=== PATIENT | female | born 1950 | race Caucasian/White ===

== ENCOUNTER → 2017-05-19 | Outpatient (CLI) | END | disposition home or self-care (01) ==

== ENCOUNTER 2019-02-02 12:09 | Day surgery (SDC) | payer OTHER ==
[~2019-02-02] VITALS: Ht 175.3 cm; Wt 73.9 kg
[~2019-02-02 12:09] MED LIST: GENT.3OPSA OD; LEVSOD175; LEVSOD50 PO; LEVSOD75 PO; PREGNENOLONE PO
== END 2019-02-02 13:56 | disposition home or self-care (01) ==
LOC: ORSCSDS 12:09
PROVIDERS: Surgery
PROC: 0DBK8ZX Excision of Ascending Colon, Via Natural or Artificial Opening Endoscopic, Diagnostic (ICD-10-PCS; principal; 2019-02-02 13:15)
DX: Z12.11 Encounter for screening for malignant neoplasm of colon (principal); D12.2 Benign neoplasm of ascending colon; E03.9 Hypothyroidism, unspecified; K21.9 Gastro-esophageal reflux disease without esophagitis; Z79.899 Other long term (current) drug therapy
CPT/HCPCS: 88305; J2704; J7120

== ENCOUNTER → 2021-01-20 | Outpatient (CLI) | payer OTHER | LOC: LAB SHORT 11:39 → LAB 11:39 | DX: D48.5 Neoplasm of uncertain behavior of skin (principal); Z91.013 Allergy to seafood | CPT/HCPCS: 88305 ==

== ENCOUNTER 2025-01-27 18:43 | Emergency (ER) | payer OTHER ==
[~2025-01-27] VITALS: Ht 175.3 cm; Wt 72.6 kg
[2025-01-27 20:15] VITALS: BP 113/53
== END 2025-01-27 21:31 | disposition home or self-care (01) ==
LOC: ER 18:43
DX: S00.93XA Contusion of unspecified part of head, initial encounter (principal); V49.9XXA Car occupant (driver) (passenger) injured in unspecified traffic accident, initial encounter; Z87.891 Personal history of nicotine dependence
CPT/HCPCS: 70450; 72125; 99284-25